=== PATIENT | male | born 2005 | race African-American/Black ===

== ENCOUNTER 2023-01-27 08:26 | Emergency (ER) | payer OTHER ==
[2023-01-27] MEDS ORDERED: Proparacaine 0.5% Opth 15 ML BOT ONE (09:01)
[2023-01-27] MEDS ORDERED: Fluorescein Opthalmic Strip ONE (09:01)
== END 2023-01-27 09:37 | disposition home or self-care (01) ==
LOC: ERS 08:26
DX: H10.9 Unspecified conjunctivitis (principal)
CPT/HCPCS: 99283

== ENCOUNTER 2023-02-06 00:48 | Emergency (ER) | payer OTHER, SELFPAY | END 2023-02-06 01:35 | disposition home or self-care (01) | LOC: ERS 00:48 | DX: R05.9 Cough, unspecified (principal) | CPT/HCPCS: 71045; 99283 ==

== ENCOUNTER 2024-04-04 20:52 | Emergency (ER) | payer OTHER, SELFPAY ==
[2024-04-04 22:05] LABS: #Basophils 0.05 10x3/uL (0.0-0.2); %Basophils 0.6 % (0.0-1.0); %Eosinophils 2.7 % (0.0-10.0); %Lymphocytes 44.2 % (28.0-48.0); %Monocytes 7.4 % (0.0-4.0); %Neutrophils 44.9 % (31.0-61.0); Hematocrit 45.8 % (42.0-52.0); Hemoglobin 15.5 g/dL (14.0-18.0); Mean Corpuscular HGB CONC 33.8 g/dL (32.0-36.0); Mean Corpuscular Hemoglobin 29.4 pg (25.0-35.0); Mean Corpuscular Volume 86.9 fL (78.0-98.0); Mean Platelet Volume 12.3 fL (7.4-10.4); Platelet Count 157 10x3/uL (130-400); RBC Distribution Width 11.8 % (11.5-14.5); Red Blood Cell (RBC) Count 5.27 mill/uL (4.00-5.20)
[2024-04-04 22:24] LABS: ALT (SGPT) 17 U/L (8-55); AST (SGOT) 18 U/L (5-34); Albumin 4.4 g/dL (3.5-5.0); Alkaline Phosphatase 107 U/L (50-130); Anion Gap 12 mmol/L (10-20); BUN (Urea Nitrogen) 17 mg/dL (8.9-20.6); Bilirubin, Total 0.6 mg/dL (0.2-1.2); Calc. Creatinine Clearance 0 mL/min (70-130); Calcium 9.6 mg/dL (7.8-10.44); Carbon Dioxide 25 mmol/L (22-29); Chloride 104 mmol/L (98-107); Estimated GFR 129; Globulin 3.6 g/dL (2.4-3.5); Glucose 89 mg/dL (70-105); Sodium 137 mmol/L (136-145)
[2024-04-04 22:28] LABS: Troponin I Less than 0.010 ng/mL (< 0.028)
== END 2024-04-04 22:53 | disposition home or self-care (01) ==
LOC: ERS 20:52
DX: R09.1 Pleurisy (principal)
CPT/HCPCS: 36415; 71045; 80053; 84484; 85025; 93005

== ENCOUNTER 2024-11-27 20:31 | Emergency (ER) | payer SELFPAY ==
[2024-11-27] MEDS ORDERED: Ibuprofen 800 MG TAB ONE (20:44)
== END 2024-11-27 21:55 | disposition home or self-care (01) ==
LOC: ERS 20:31
DX: B34.9 Viral infection, unspecified (principal)
CPT/HCPCS: 87428; 99283